=== PATIENT | female | born 1990 | race Two or more races ===

== ENCOUNTER 2018-04-12 11:08 | Emergency (ER) | payer SELFPAY ==
[~2018-04-12] VITALS: Ht 162.6 cm; Wt 49.9 kg
[2018-04-12 11:21] VITALS: BP 114/64
[2018-04-12] MEDS ORDERED: BACITRACIN ZINC OINT PACKET 1 EA PACKET TP STA (11:27)
== END 2018-04-12 11:49 | disposition home or self-care (01) ==
LOC: ER 11:12
DX: S00.81XA Abrasion of other part of head, initial encounter (principal); Z60.2 Problems related to living alone; V49.49XA Driver injured in collision with other motor vehicles in traffic accident, initial encounter; Y93.89 Activity, other specified; Y92.410 Unspecified street and highway as the place of occurrence of the external cause; Y99.8 Other external cause status
CPT/HCPCS: 99283; A4606; A6402; Z7610